=== PATIENT | female | born 1965 | race Caucasian/White ===

== ENCOUNTER 2018-09-28 13:52 | Emergency (ER) | payer OTHER ==
[2018-09-28] MEDS: SOD CHLORIDE 0.9% 1,000 ML IV (16:14)
[2018-09-28 16:50] LABS: ADD MAN DIFF? NO
[2018-09-28 16:51] LABS: WHITE BLOOD COUNT 5.8 10^3/ul (4.8-10.8)
[2018-09-28 16:51] LABS: BASOPHILS % 0.5 % (0.0-2.0); EOSINOPHILS # 0.1 10^3/ul (0.0-0.5); EOSINOPHILS % 1.6 % (0.0-7.0); HEMATOCRIT 36.9 % (37.0-47.0); HEMOGLOBIN 11.4 g/dl (12.0-16.0); LYMPHOCYTES # 2.6 10^3/ul (0.8-2.9); LYMPHOCYTES % 44.5 % (15.0-51.0); MEAN CORPUSCULAR HEMOGLOBIN 28.1 pg (29.0-33.0); MEAN CORPUSCULAR HGB CONC 30.9 g/dl (32.0-37.0); MEAN CORPUSCULAR VOLUME 91.1 fl (82.0-101.0); MEAN PLATELET VOLUME 9.6 fl (7.4-10.4); MONOCYTE # 0.5 10^3/ul (0.3-0.9); MONOCYTES % 8.1 % (0.0-11.0); NEUTROPHIL # 2.6 10^3/ul (1.6-7.5); PLATELET COUNT 393 10^3/UL (140-415); RED BLOOD COUNT 4.05 10^6/ul (4.20-5.40); RED CELL DISTRIBUTION WIDTH 13.3 % (11.5-14.5)
[2018-09-28 17:10] LABS: INR 0.88; PT RATIO 0.9
[2018-09-28 17:11] LABS: PARTIAL THROMBOPLASTIN TIME 26.3 Sec (23.0-35.0)
[2018-09-28 17:16] LABS: ANION GAP 9 (5-13); BLOOD UREA NITROGEN 19 mg/dl (7-20); CALCIUM 9.9 mg/dl (8.4-10.2); CARBON DIOXIDE 25 mmol/L (21-31); CHLORIDE 107 mmol/L (97-110); CREATININE 0.61 mg/dl (0.44-1.00); Estimated GFR > 60 mL/min (>60); GLUCOSE 115 mg/dl (70-220); POTASSIUM 3.9 mmol/L (3.5-5.1); SODIUM 141 mmol/L (135-144)
[2018-09-28 17:27] LABS: TROPONIN-I < 0.012 ng/ml (0.000-0.120)
[2018-09-28] MEDS: SOD CHLORIDE 0.9% 100 ML (18:27)
[2018-09-28] MEDS: IOHEXOL 300MG/ML 150 ML BTL (18:28)
== END 2018-09-28 19:33 | disposition home or self-care (01) ==
LOC: E/R 13:52
DX: R20.2 Paresthesia of skin (principal)
CPT/HCPCS: 71260; 80048; 84484; 85025; 85610; 85730; 93005; 93971; 99285-25